=== PATIENT | male | born 1990 | race American Indian/Alaskan Native ===

== ENCOUNTER 2016-12-21 02:10 | Emergency (ER) | payer BC, OTHER ==
[2016-12-21 02:20] VITALS: TEMP 98.3; O2SAT 99; BMI 25.8
--- NOTE | 2016-12-21 02:33 | ED PDOC ---
Arrival/HPI - General Time Seen by Provider: 12/21/16 02:23 - History of Present Illness Narrative History of Present Illness (Text): 12/21/16 02:30 Gilbert Gomez is a 26 year old male, whose past medical history includes H. pylori gastritis, who presents to the Emergency department complaining of nausea and vomiting since eating chicken yesterday evening. Patient also notes some abdominal discomfort. Patient denies any fever, chills, chest pain, shortness of breath, diarrhea, urinary symptoms, back pain, neck pain, headache , dizziness, or any other complaints. Time/Duration: 4-6 hours Symptom Onset: Gradual Symptom Course: Unchanged Activities at Onset: Light, Eating Context: Home Past Medical History - Provider Review Nursing Documentation Reviewed: Yes - Cardiac Hx Cardiac Disorders: No - Pulmonary Hx Respiratory Disorders: No - Neurological Hx Neurological Disorder: No - HEENT Hx HEENT Disorder: No - Renal Hx Renal Disorder: No - Endocrine/Metabolic Hx Endocrine Disorders: No - Hematological/Oncological Hx Blood Disorders: No - Integumentary Hx Dermatological Disorder: No - Musculoskeletal/Rheumatological Hx Musculoskeletal Disorders: No Hx Falls: No - Gastrointestinal Hx Gastrointestinal Disorders: Yes Other/Comment: h pylori - Genitourinary/Gynecological Hx Genitourinary Disorders: No - Psychiatric Hx Psychophysiologic Disorder: No Hx Substance Use: No - Anesthesia Hx Anesthesia: No Family/Social History - Physician Review Nursing Documentation Reviewed: Yes Family/Social History: No Known Family HX Smoking Status: Never Smoked Hx Alcohol Use: No Hx Substance Use: No Allergies/Home Meds Allergies/Adverse Reactions: Allergies No Known Allergies Allergy (Verified 01/15/16 21:04) Home Medications: Home Meds Medication Instructions Recorded Confirmed Lansoprazole/Amoxiciln/Clarith 01/15/16 [Prevpac Patient Pack] Review of Systems - Physician Review All systems were reviewed & negative as marked: Yes - Review of Systems Constitutional: Normal. absent: Fevers Eyes: Normal ENT: Normal Respiratory: Normal. absent: SOB, Cough Cardiovascular: Normal. absent: Chest Pain Gastrointestinal: Abdominal Pain, Nausea, Vomiting. absent: Diarrhea Genitourinary Male: Normal. absent: Dysuria, Frequency, Hematuria, Urinary Output Changes Musculoskeletal: Normal. absent: Back Pain, Neck Pain Skin: Normal. absent: Rash Neurological: Normal. absent: Headache, Dizziness Endocrine: Normal Hemo/Lymphatic: Normal Psychiatric: Normal Physical Exam Vital Signs Reviewed: Yes Vital Signs Temp Pulse Resp BP Pulse Ox 12/21/16 04:10 98 H 16 114/64 99 12/21/16 02:18 98.3 F 78 18 109/75 99 Temperature: Afebrile Blood Pressure: Normal Pulse: Regular Respiratory Rate: Normal Appearance: Positive for: Well-Appearing, Non-Toxic, Comfortable Pain Distress: None Mental Status: Positive for: Alert and Oriented X 3 - Systems Exam Head: Present: Atraumatic, Normocephalic Pupils: Present: PERRL Extroacular Muscles: Present: EOMI Conjunctiva: Present: Normal Mouth: Present: Moist Mucous Membranes Neck: Present: Normal Range of Motion Respiratory/Chest: Present: Clear to Auscultation, Good Air Exchange. No: Respiratory Distress, Accessory Muscle Use Cardiovascular: Present: Regular Rate and Rhythm, Normal S1, S2. No: Murmurs Abdomen: Present: Normal Bowel Sounds. No: Tenderness, Distention, Peritoneal Signs Back: Present: Normal Inspection Upper Extremity: Present: Normal Inspection. No: Cyanosis, Edema Lower Extremity: Present: Normal Inspection. No: Edema Neurological: Present: GCS=15, CN II-XII Intact, Speech Normal Skin: Present: Warm, Dry, Normal Color. No: Rashes Psychiatric: Present: Alert, Oriented x 3, Normal Insight, Normal Concentration Medical Decision Making ED Course and Treatment: 12/21/16 02:30 Impression: 26 year old male complaining of nausea, vomiting, abdominal discomfort after eating at 18:00. Differential Diagnosis include but are not limited to: gastritis Plan: -- Labs, lipase -- IV fluids -- Zofran -- Pepcid -- Reassess and disposition Progress Notes: - Lab Interpretations Lab Results: 12/21/16 02:35 12/21/16 02:35 Lab Results 12/21/16 02:35: WBC 7.1, RBC 5.91, Hgb 13.4 L, Hct 40.7 L, MCV 68.9 L, MCH 22.7 L, MCHC 32.9, RDW 18.1 H, Plt Count 326, MPV 9.7 12/21/16 02:35: Sodium 140, Potassium 3.8, Chloride 103, Carbon Dioxide 28, Anion Gap 13, BUN 8, Creatinine 1.0, Est GFR ( Amer) > 60, Est GFR (Non- Af Amer) > 60, Random Glucose 134 H, Calcium 9.1, Total Bilirubin 0.5, AST 30, ALT 38, Alkaline Phosphatase 86, Total Protein 7.6, Albumin 3.9, Globulin 3.6, Albumin/Globulin Ratio 1.1, Lipase 115 - Medication Orders Current Medication Orders: Discontinued Medications Famotidine (Pepcid) 20 mg IVP STAT STA Stop: 12/21/16 02:36 Last Admin: 12/21/16 03:02 Dose: 20 mg Sodium Chloride (Sodium Chloride 0.9%) 1,000 mls @ 999 mls/hr IV .Q1H1M STA Stop: 12/21/16 03:34 Last Admin: 12/21/16 02:49 Dose: 999 mls/hr Ondansetron HCl (Zofran Inj) 4 mg IVP ONCE ONE Stop: 12/21/16 02:35 Last Admin: 12/21/16 02:50 Dose: 4 mg - Scribe Statement The provider has reviewed the documentation as recorded by the Marty Kim Provider Attestation: All medical record entries made by the Marty were at my direction and personally dictated by me. I have reviewed the chart and agree that the record accurately reflects my personal performance of the history, physical exam, medical decision making, and the department course for this patient. I have also personally directed, reviewed, and agree with the discharge instructions and disposition. Disposition/Present on Arrival - Present on Arrival Any Indicators Present on Arrival: No History of DVT/PE: No History of Uncontrolled Diabetes: No Urinary Catheter: No History Surgical Site Infection Following: None - Disposition Have Diagnosis and Disposition been Completed?: Yes Diagnosis: Gastritis Disposition: HOME/ ROUTINE Disposition Time: 05:00 Patient Plan: Discharge Condition: STABLE Discharge Instructions (ExitCare): Gastritis (ED) Additional Instructions: Take meds as prescribed/follow up with your doctor this week Prescriptions: Ondansetron [Zofran Odt] 4 mg PO Q6 PRN #6 odt PRN Reason: Nausea/Vomiting
[2016-12-21] MEDS ORDERED: Sodium Chloride 0.9% 1,000 ML IV STA (02:34)
[2016-12-21 02:54] LABS: HEMATOCRIT 40.7 % (42.0-52.0); MEAN CORPUSCULAR HEMOGLOBIN 22.7 pg (25.0-35.0); MEAN CORPUSCULAR HGB CONC 32.9 g/dl (31.0-37.0); MEAN PLATELET VOLUME 9.7 fl (7.0-11.0); RED CELL DISTRIBUTION WIDTH 18.1 % (11.5-14.5); WHITE BLOOD COUNT 7.1 10^3/ul (4.5-11.0)
[2016-12-21 02:59] LABS: ALB/GLOB RATIO 1.1 (1.1-1.8); ALKALINE PHOSPHATASE 86 U/L (38-133); ALT/SGPT 38 U/L (7-56); AST/SGOT 30 U/L (15-59); BILIRUBIN,TOTAL 0.5 mg/dL (0.2-1.3); BLOOD UREA NITROGEN 8 mg/dL (7-21); CALCIUM 9.1 mg/dL (8.4-10.5); CARBON DIOXIDE 28 mmol/L (21-33); CHLORIDE 103 mmol/L (95-110); GFR AFRICAN-AMERICAN > 60; GLUCOSE,RANDOM 134 mg/dL (70-110); LIPASE 115 U/L (23-300); POTASSIUM 3.8 mmol/L (3.6-5.0); SODIUM 140 mmol/L (132-148); TOTAL PROTEIN 7.6 g/dL (5.8-8.3)
[2016-12-21 04:17] VITALS: BP 114/64; PULSE 98; RESP 16
[2016-12-21 05:03] LABS: MEAN CELL VOLUME 68.9 fL (80.0-105.0)
== END 2016-12-21 05:13 | disposition home or self-care (01) ==
LOC: ED 02:10
DX: K29.70 Gastritis, unspecified, without bleeding (principal)
CPT/HCPCS: 80053; 83690; 85027; 96374; 96375; 99283; J2405; J7040

== ENCOUNTER 2018-02-21 07:42 | Emergency (ER) | payer BC, MEDICARE, OTHER ==
[2018-02-21 07:43] VITALS: BMI 25.8
--- NOTE | 2018-02-21 07:51 | ED PDOC ---
Arrival/HPI - General Chief Complaint: GI Problem Time Seen by Provider: 02/21/18 07:47 Historian: Patient - History of Present Illness Narrative History of Present Illness (Text): 02/21/18 08:10 27 year old male, whose PMH includes H pylori, who presents to the emergency department complaining of generalized abdominal pain associated with vomiting x4 episodes s/p eating. Patient reports having similar symptoms in the past 2 years ago and went to the emergency department for H pylori antibiotics. Patient denies fever, chills, blood in stool, dysuria, hematuria, or other complaints. He rates his pain 10 out 10. Time/Duration: < week Symptom Onset: Sudden Symptom Course: Unchanged Severity Level: 10 Context: Home Past Medical History - Provider Review Nursing Documentation Reviewed: Yes - Infectious Disease Hx of Infectious Diseases: None - Cardiac Hx Cardiac Disorders: No - Pulmonary Hx Respiratory Disorders: No - Neurological Hx Neurological Disorder: No - HEENT Hx HEENT Disorder: No - Renal Hx Renal Disorder: No - Endocrine/Metabolic Hx Endocrine Disorders: No - Hematological/Oncological Hx Blood Disorders: No - Integumentary Hx Dermatological Disorder: No - Musculoskeletal/Rheumatological Hx Musculoskeletal Disorders: No Hx Falls: No - Gastrointestinal Hx Gastrointestinal Disorders: Yes Other/Comment: h pylori - Genitourinary/Gynecological Hx Genitourinary Disorders: No - Psychiatric Hx Psychophysiologic Disorder: No Hx Substance Use: No - Anesthesia Hx Anesthesia: No Family/Social History - Physician Review Nursing Documentation Reviewed: Yes Family/Social History: Unknown Family HX Smoking Status: Never Smoked Hx Alcohol Use: No Hx Substance Use: No Allergies/Home Meds Allergies/Adverse Reactions: Allergies No Known Allergies Allergy (Verified 02/21/18 07:49) Review of Systems - Review of Systems Constitutional: absent: Fevers ENT: absent: Sinus Congestion Respiratory: absent: SOB Cardiovascular: absent: Chest Pain Gastrointestinal: Abdominal Pain, Nausea, Vomiting. absent: Hematochezia, Hematemesis Genitourinary Male: absent: Dysuria Musculoskeletal: absent: Back Pain Skin: absent: Rash Neurological: absent: Headache Endocrine: absent: Diaphoresis Physical Exam Vital Signs Reviewed: Yes Vital Signs Temp Pulse Resp BP Pulse Ox 02/21/18 09:18 98.6 F 79 18 128/79 99 02/21/18 07:47 98.3 F 74 18 137/80 99 Temperature: Afebrile Blood Pressure: Normal Pulse: Regular Respiratory Rate: Normal Appearance: Positive for: Well-Appearing, Non-Toxic, Comfortable Pain Distress: None Mental Status: Positive for: Alert and Oriented X 3 - Systems Exam Head: Present: Atraumatic, Normocephalic Pupils: Present: PERRL Extroacular Muscles: Present: EOMI Conjunctiva: Present: Normal Respiratory/Chest: Present: Clear to Auscultation, Good Air Exchange. No: Respiratory Distress, Accessory Muscle Use, Wheezes, Decreased Breath Sounds, Rales, Retracting, Rhonchi Cardiovascular: Present: Regular Rate and Rhythm, Normal S1, S2. No: Murmurs Abdomen: Present: Normal Bowel Sounds, Other (pain on deep palpation ). No: Tenderness, Distention, Peritoneal Signs, Rebound, Guarding, McBurney's Point Tender Neurological: Present: GCS=15, CN II-XII Intact, Speech Normal Skin: Present: Warm, Dry, Normal Color. No: Rashes Psychiatric: Present: Alert, Oriented x 3, Normal Insight, Normal Concentration Medical Decision Making ED Course and Treatment: 02/21/18 Impression: 27 year old male with pain on palpation to the abdomen complaining of abdominal pain associated with vomiting. Plan: -- Labs -- Pepcid, Zofran, Maalox, and Sodium Chloride -- Reassess and disposition Progress Notes: - Lab Interpretations Lab Results: 02/21/18 07:00 02/21/18 07:00 Lab Results 02/21/18 07:00: Sodium 142, Potassium 3.5 L, Chloride 103, Carbon Dioxide 27, Anion Gap 16, BUN 10, Creatinine 1.0, Est GFR ( Amer) > 60, Est GFR (Non- Af Amer) > 60, Random Glucose 113 H, Calcium 9.4, Magnesium 1.8, Total Bilirubin 0.7, AST 41, ALT 28, Alkaline Phosphatase 125, Total Protein 8.1, Albumin 4.5, Globulin 3.6, Albumin/Globulin Ratio 1.3, Lipase 102 02/21/18 07:00: WBC 8.6 D, RBC 6.02, Hgb 13.2 L, Hct 40.1 L, MCV 66.6 L, MCH 21.9 L, MCHC 32.9, RDW 18.5 H, Plt Count 313, MPV 10.0, Gran % 46.8 L, Lymph % ( Auto) 38.1 H, [place] % (Auto) 8.4 H, Eos % (Auto) 6.0 H, Baso % (Auto) 0.7, Gran # 4.04, Lymph # (Auto) 3.3, [place] # (Auto) 0.7 H, Eos # (Auto) 0.5, Baso # (Auto ) 0.06 I have reviewed the lab results: Yes - Medication Orders Current Medication Orders: Discontinued Medications Al Hydrox/Mg Hydrox/Simethicone (Maalox Plus 30 Ml) 30 ml PO STAT STA Stop: 02/21/18 08:14 Last Admin: 02/21/18 09:12 Dose: Not Given Non-Admin Reason: Patient Refused Famotidine (Pepcid) 20 mg IVP STAT STA Stop: 02/21/18 08:13 Last Admin: 02/21/18 08:24 Dose: 20 mg IVP Administration Document 02/21/18 08:24 EWO (Rec: 02/21/18 08:24 EWO [id number]) Charges for Administration # of IVP Administrations 1 Sodium Chloride (Sodium Chloride 0.9%) 1,000 mls @ 1,000 mls/hr IV .Q1H STA Stop: 02/21/18 09:11 Last Admin: 02/21/18 08:25 Dose: 1,000 mls/hr eMAR Start Stop Document 02/21/18 08:25 EWO (Rec: 02/21/18 08:25 EWO [id number]) Intravenous Solution Start Date 02/21/18 Start Time 08:25 End Date 02/21/18 End time 09:25 Total Infusion Time 60 Ondansetron HCl (Zofran Inj) 4 mg IVP STAT STA Stop: 02/21/18 08:13 Last Admin: 02/21/18 08:24 Dose: 4 mg IVP Administration Document 02/21/18 08:24 EWO (Rec: 02/21/18 08:24 EWO [id number]) Charges for Administration # of IVP Administrations 1 - Scribe Statement The provider has reviewed the documentation as recorded by the Marty Goins Provider Scribe Attestation: All medical record entries made by the Scribe were at my direction and personally dictated by me. I have reviewed the chart and agree that the record accurately reflects my personal performance of the history, physical exam, medical decision making, and the department course for this patient. I have also personally directed, reviewed, and agree with the discharge instructions and disposition. Disposition/Present on Arrival - Present on Arrival Any Indicators Present on Arrival: No History of DVT/PE: No History of Uncontrolled Diabetes: No Urinary Catheter: No History of Decub. Ulcer: No History Surgical Site Infection Following: None - Disposition Have Diagnosis and Disposition been Completed?: Yes Diagnosis: Gastritis Disposition: HOME/ ROUTINE Disposition Time: 08:40 Condition: IMPROVED Discharge Instructions (ExitCare): Gastritis (DC) Additional Instructions: KAVYA ALVAREZ, thank you for letting us take care of you today. The emergency medical care you received today was directed at your acute symptoms. If you were prescribed any medication, please fill it and take as directed. It may take several days for your symptoms to resolve. Return to the Emergency Department if your symptoms worsen, do not improve, or if you have any other problems. Please contact your doctor or call one of the physicians/clinics you have been referred to that are listed on the Patient Visit Information form that is included in your discharge packet. Bring any paperwork you were given at discharge with you along with any medications you are taking to your follow up visit. Our treatment cannot replace ongoing medical care by a primary care provider outside of the emergency department. Thank you for allowing the [facility] team to be part of your care today. Follow up with your primary care doctor in 3-4 days for re-evaluation and further management. Prescriptions: Lansoprazole/Amoxiciln/Clarith [Prevpac Patient Pack] 1 each PO DAILY #1 combo..pkg Ranitidine HCl [Zantac] 150 mg PO BID #14 tablet Referrals: Mayra Marinelli MD [Family Provider] - Follow up with primary Forms: [employer] (Latvian)
[2018-02-21 07:58] VITALS: RESP 18; O2SAT 99
[2018-02-21] MEDS ORDERED: Sodium Chloride 0.9% 1,000 ML IV STA (08:12)
[2018-02-21] MEDS ORDERED: Alum-Mag Hydrox-Simethicone Susp (30 mL) PO STA (08:13)
[2018-02-21 08:21] LABS: BASO # 0.06 K/mm3 (0.0-2.0); BASO % 0.7 % (0.0-3.0); EOS # 0.5 (0.0-0.7); GRAN # 4.04 (1.4-6.5); GRAN % 46.8 % (50.0-68.0); HEMOGLOBIN 13.2 g/dL (14.0-18.0); LYMPH # 3.3 (1.2-3.4); LYMPH % 38.1 % (22.0-35.0); MEAN CELL VOLUME 66.6 fl (80.0-105.0); MEAN CORPUSCULAR HEMOGLOBIN 21.9 pg (25.0-35.0); MEAN CORPUSCULAR HGB CONC 32.9 g/dl (31.0-37.0); MONO # 0.7 (0.1-0.6); MONO % 8.4 % (1.0-6.0); RBC 6.02 10^6/uL (3.5-6.1); RED CELL DISTRIBUTION WIDTH 18.5 % (11.5-14.5); WHITE BLOOD COUNT 8.6 10^3/ul (4.5-11.0)
[2018-02-21 08:38] LABS: ALB/GLOB RATIO 1.3 (1.1-1.8); ALBUMIN 4.5 g/dL (3.0-4.8); ALT/SGPT 28 U/L (7-56); AST/SGOT 41 U/L (17-59); BLOOD UREA NITROGEN 10 mg/dL (7-21); CALCIUM 9.4 mg/dL (8.4-10.5); GFR AFRICAN-AMERICAN > 60; GFR NON-AFRICAN AMERICAN > 60; LIPASE 102 U/L (23-300)
[2018-02-21 09:19] VITALS: BP 128/79; PULSE 79; TEMP 98.6
== END 2018-02-21 09:18 | disposition home or self-care (01) ==
LOC: ED 07:42
DX: K29.70 Gastritis, unspecified, without bleeding (principal)
CPT/HCPCS: 80053; 83690; 83735; 85025; 96361; 96374; 96375; 99282; J2405; J7030

== ENCOUNTER 2018-02-23 18:47 | Emergency (ER) | payer BC, MEDICARE, OTHER ==
[2018-02-23 18:47] VITALS: BMI 25.8
[2018-02-23] MEDS ORDERED: Sodium Chloride 0.9% 1,000 ML IV STA (19:24)
[2018-02-23 20:05] LABS: ALB/GLOB RATIO 1.2 (1.1-1.8); ALBUMIN 4.5 g/dL (3.0-4.8); ALT/SGPT 36 U/L (7-56); AST/SGOT 41 U/L (17-59); BASO # 0.05 K/mm3 (0.0-2.0); BASO % 0.6 % (0.0-3.0); BLOOD UREA NITROGEN 12 mg/dL (7-21); CALCIUM 9.7 mg/dL (8.4-10.5); EOS # 0.1 (0.0-0.7); EOS % 1.5 % (1.5-5.0); GFR AFRICAN-AMERICAN > 60; GFR NON-AFRICAN AMERICAN > 60; GRAN # 6.16 (1.4-6.5); GRAN % 70.2 % (50.0-68.0); HEMOGLOBIN 13.7 g/dL (14.0-18.0); LIPASE 61 U/L (23-300); LYMPH # 1.8 (1.2-3.4); LYMPH % 20.9 % (22.0-35.0); MEAN CELL VOLUME 67.1 fl (80.0-105.0); MEAN CORPUSCULAR HEMOGLOBIN 22.2 pg (25.0-35.0); MEAN CORPUSCULAR HGB CONC 33.1 g/dl (31.0-37.0); MEAN PLATELET VOLUME 10.1 fl (7.0-11.0); MONO # 0.6 (0.1-0.6); MONO % 6.8 % (1.0-6.0); RBC 6.17 10^6/uL (3.5-6.1); RED CELL DISTRIBUTION WIDTH 18.5 % (11.5-14.5); WHITE BLOOD COUNT 8.8 10^3/ul (4.5-11.0)
--- NOTE | 2018-02-23 20:16 | ED PDOC ---
Arrival/HPI - General Historian: Patient - History of Present Illness Time/Duration: < week Symptom Onset: Gradual Activities at Onset: Rest Context: Home <Sharonda Durán - Last Filed: 02/23/18 22:04> <Sarath Ye DO - Last Filed: 02/24/18 05:45> - General Chief Complaint: Weakness/Neurological Deficit Time Seen by Provider: 02/23/18 18:55 - History of Present Illness Narrative History of Present Illness (Text): 02/23/18 20:10 This is a 27 year old male with PMH of H. Pylori presenting to the ER today after 2 days of abdominal pain, diarrhea, vomiting, and dizziness. Patient states he vomited 8 times yesterday, mostly food. He was seen in the ER earlier this week for abdominal pain, and was given Prevpak for likely exacerbation of H. Pylori. However, patient was unable to fill the medication due to cost. Patient denies headaches, chest pain, SOB, fevers, numbness and tingling, sick contacts at home and recent travel. (Sharonda Durán) Past Medical History - Provider Review Nursing Documentation Reviewed: Yes - Infectious Disease Hx of Infectious Diseases: None - Cardiac Hx Cardiac Disorders: No - Pulmonary Hx Respiratory Disorders: No - Neurological Hx Neurological Disorder: No - HEENT Hx HEENT Disorder: No - Renal Hx Renal Disorder: No - Endocrine/Metabolic Hx Endocrine Disorders: No - Hematological/Oncological Hx Blood Disorders: No - Integumentary Hx Dermatological Disorder: No - Musculoskeletal/Rheumatological Hx Musculoskeletal Disorders: No Hx Falls: No - Gastrointestinal Hx Gastrointestinal Disorders: Yes Other/Comment: h pylori - Genitourinary/Gynecological Hx Genitourinary Disorders: No - Psychiatric Hx Psychophysiologic Disorder: No Hx Substance Use: No - Anesthesia Hx Anesthesia: No <Sharonda Durán - Last Filed: 02/23/18 22:04> Family/Social History - Physician Review Nursing Documentation Reviewed: Yes Family/Social History: Unknown Family HX Smoking Status: Never Smoked Hx Alcohol Use: No Hx Substance Use: No <Sharonda Durán - Last Filed: 02/23/18 22:04> Allergies/Home Meds <Sharonda Durán - Last Filed: 02/23/18 22:04> <Sarath Ye DO - Last Filed: 02/24/18 05:45> Allergies/Adverse Reactions: Allergies No Known Allergies Allergy (Verified 02/23/18 18:52) Home Medications: Home Meds Medication Instructions Recorded Confirmed No Known Home Med 02/23/18 02/23/18 Review of Systems - Physician Review All systems were reviewed & negative as marked: Yes - Review of Systems Constitutional: Normal. absent: Weight Change, Fevers Respiratory: Normal. absent: SOB, Cough Cardiovascular: Normal. absent: Chest Pain, Palpitations Gastrointestinal: Abdominal Pain, Diarrhea, Vomiting. absent: Stool Changes, Hematochezia, Hematemesis Musculoskeletal: Normal Skin: Normal Neurological: Normal, Dizziness. absent: Headache Endocrine: Normal Psychiatric: Normal <Sharonda Durán Last Filed: 02/23/18 22:04> Physical Exam Vital Signs Reviewed: Yes Temperature: Afebrile Blood Pressure: Normal Pulse: Tachycardic Respiratory Rate: Normal Appearance: Positive for: Well-Appearing, Non-Toxic, Comfortable Pain Distress: None Mental Status: Positive for: Alert and Oriented X 3 - Systems Exam Head: Present: Atraumatic, Normocephalic Pupils: Present: PERRL Extroacular Muscles: Present: EOMI Conjunctiva: Present: Normal Mouth: Present: Moist Mucous Membranes Neck: Present: Normal Range of Motion Respiratory/Chest: Present: Clear to Auscultation, Good Air Exchange. No: Respiratory Distress, Accessory Muscle Use Cardiovascular: Present: Regular Rate and Rhythm, Normal S1, S2. No: Murmurs Abdomen: Present: Normal Bowel Sounds. No: Tenderness, Distention, Peritoneal Signs, Rebound, Guarding, McBurney's Point Tender Back: Present: Normal Inspection Upper Extremity: Present: Normal Inspection. No: Cyanosis, Edema Lower Extremity: Present: Normal Inspection. No: Edema Neurological: Present: CN II-XII Intact, Speech Normal, Motor Func Grossly Intact, Normal Sensory Function Skin: Present: Warm, Dry, Normal Color. No: Rashes Psychiatric: Present: Alert, Normal Insight, Normal Concentration <Sharonda Durán Last Filed: 02/23/18 22:04> Vital Signs Temp Pulse Resp BP Pulse Ox 02/23/18 22:07 98.7 F 89 18 113/66 100 02/23/18 22:04 98.7 F 89 18 113/66 100 02/23/18 18:53 99.1 F 120 H 17 105/67 99 Medical Decision Making <Sharonda Durán - Last Filed: 02/23/18 22:04> <Cassi DOSarath - Last Filed: 02/24/18 05:45> ED Course and Treatment: Impression: This is a 27 year old male with PMH of H. Pylori presenting with dizziness, vomiting, abdominal pain and diarrhea. Plan: -CT abd/pelvis -Drug Screen -U/A, culture -Pepcid -Zofran -CBC, CMP -Lipase, Mg Progress: (LeeannaSharonda) - Lab Interpretations Lab Results: 02/23/18 19:43 02/23/18 19:43 Lab Results 02/23/18 21:10: Urine Opiates Screen Negative, Urine Methadone Screen Negative, Ur Barbiturates Screen Negative, Ur Phencyclidine Scrn Negative, Ur Amphetamines Screen Negative, U Benzodiazepines Scrn Negative, U Oth Cocaine Metabols Negative, U Cannabinoids Screen Negative 02/23/18 21:10: Urine Color Yellow, Urine Appearance Clear, Urine pH 7.5, Ur Specific [place] 1.010, Urine Protein 100 H, Urine Glucose (UA) Negative, Urine Ketones 15 H, Urine Blood Negative, Urine Nitrate Negative, Urine Bilirubin Negative, Urine Urobilinogen 1.0 H, Ur Leukocyte Esterase Negative, Urine RBC 0 - 2, Urine WBC 1 - 3, Ur Epithelial Cells None, Amorphous Sediment Few, Urine Bacteria Mod 02/23/18 19:43: Sodium 143, Potassium 3.9, Chloride 101, Carbon Dioxide 28, Anion Gap 17, BUN 12, Creatinine 1.1, Est GFR ( Amer) > 60, Est GFR (Non- Af Amer) > 60, Random Glucose 88, Calcium 9.7, Magnesium 2.0, Total Bilirubin 1.3, AST 41, ALT 36, Alkaline Phosphatase 134 H, Total Protein 8.4 H, Albumin 4.5, Globulin 3.9, Albumin/Globulin Ratio 1.2, Lipase 61 02/23/18 19:43: WBC 8.8, RBC 6.17 H, Hgb 13.7 L, Hct 41.4 L, MCV 67.1 L, MCH 22.2 L, MCHC 33.1, RDW 18.5 H, Plt Count 316, MPV 10.1, Gran % 70.2 H, Lymph % ( Auto) 20.9 L, [place] % (Auto) 6.8 H, Eos % (Auto) 1.5, Baso % (Auto) 0.6, Gran # 6.16, Lymph # (Auto) 1.8, [place] # (Auto) 0.6, Eos # (Auto) 0.1, Baso # (Auto) 0.05 - RAD Interpretation Radiology Orders: 02/23/18 19:24 ABD & PELVIS IV CONTRAST ONLY [CT] Stat - Medication Orders Current Medication Orders: Discontinued Medications Famotidine (Pepcid) 20 mg IVP STAT STA Stop: 02/23/18 19:25 Last Admin: 02/23/18 19:52 Dose: 20 mg IVP Administration Document 02/23/18 19:52 IT (Rec: 02/23/18 19:52 IT [id number]) Charges for Administration # of IVP Administrations 1 Sodium Chloride (Sodium Chloride 0.9%) 1,000 mls @ 1,000 mls/hr IV .Q1H STA Stop: 02/23/18 20:23 Last Admin: 02/23/18 19:52 Dose: 1,000 mls/hr eMAR Start Stop Document 02/23/18 19:52 IT (Rec: 02/23/18 19:52 IT [id number]) Intravenous Solution Start Date 02/23/18 Start Time 19:52 Ondansetron HCl (Zofran Inj) 8 mg IVP STAT STA Stop: 02/23/18 20:08 Last Admin: 02/23/18 21:12 Dose: 8 mg IVP Administration Document 02/23/18 21:12 IT (Rec: 02/23/18 21:12 IT [id number]) Charges for Administration # of IVP Administrations 1 - PA / SEISMOGRAPHER / Resident Statement / has reviewed & agrees with the documentation as recorded. / has examined the patient and agrees with the treatment plan. <Sharonda Durán - Last Filed: 02/23/18 22:04> Disposition/Present on Arrival - Present on Arrival Any Indicators Present on Arrival: No History of DVT/PE: No History of Uncontrolled Diabetes: No Urinary Catheter: No History of Decub. Ulcer: No History Surgical Site Infection Following: None - Disposition Have Diagnosis and Disposition been Completed?: Yes Disposition Time: 22:00 <Sharonda Durán - Last Filed: 02/23/18 22:04> - Disposition Disposition Time: 21:00 <Sarath Ye DO - Last Filed: 02/24/18 05:45> - Disposition Diagnosis: Gastritis Disposition: HOME/ ROUTINE Condition: GOOD Discharge Instructions (ExitCare): Gastritis (DC) Additional Instructions: KAVYA ALVAREZ, thank you for letting us take care of you today. The emergency medical care you received today was directed at your acute symptoms. If you were prescribed any medication, please fill it and take as directed. It may take several days for your symptoms to resolve. Return to the Emergency Department if your symptoms worsen, do not improve, or if you have any other problems. Please contact your doctor or call one of the physicians/clinics you have been referred to that are listed on the Patient Visit Information form that is included in your discharge packet. Bring any paperwork you were given at discharge with you along with any medications you are taking to your follow up visit. Our treatment cannot replace ongoing medical care by a primary care provider outside of the emergency department. Thank you for allowing the [facility] team to be part of your care today. Please fill the prescriptions that you received 2 days ago and take as directed. Follow up with Dr. Marinelli in 2-3 days for re-evaluation and further management. Referrals: Mayra Marinelli MD [Primary Care Provider] - Follow up with primary Forms: [employer] ([place]ander)
[2018-02-23] MEDS ORDERED: Iohexol 350 MG/100 ML VIAL ONE (20:21)
[2018-02-23 21:42] LABS: BARBITURATES, UR NEGATIVE (NEGATIVE); BENZODIAZEPINES, UR NEGATIVE (NEGATIVE); OPIATES, UR NEGATIVE (NEGATIVE); PH,URINE 7.5 (4.7-8.0); PHENCYCLIDINE, UR NEGATIVE (NEGATIVE); URINE BILIRUBIN NEGATIVE (NEGATIVE); URINE BLOOD NEGATIVE (NEGATIVE); URINE GLUCOSE (UA) NEGATIVE (NEGATIVE); URINE LEUKOCYTE ESTERASE NEGATIVE Leu/uL (NEGATIVE); URINE PROTEIN 100 mg/dL (<30 mg/dL)
[2018-02-23 21:46] LABS: URINE APPEARANCE CLEAR (CLEAR); URINE COLOR YELLOW (YELLOW)
[2018-02-23 21:50] LABS: URINE AMORPHOUS SEDIMENT FEW; URINE BACTERIA MOD (NEG); URINE RBC 0 - 2 /hpf (0-2)
[2018-02-23 22:05] VITALS: BP 113/66; PULSE 89; RESP 18; TEMP 98.7; O2SAT 100
--- NOTE | 2018-02-24 08:18 | CT ---
PROCEDURE: CT Abdomen and Pelvis with contrast HISTORY: diffuse abdominal pain with vomiting and diarrhea. COMPARISON: 01/17/2016 TECHNIQUE: Contrast dose: 100 cc Omnipaque 350 Radiation dose: Total exam DLP = 724.74 mGy-cm. This CT exam was performed using one or more of the following dose reduction techniques: Automated exposure control, adjustment of the mA and/or kV according to patient size, and/or use of iterative reconstruction technique. FINDINGS: LOWER THORAX: Unremarkable. LIVER: Unremarkable. No gross lesion or ductal dilatation. GALLBLADDER AND BILE DUCTS: Unremarkable. PANCREAS: Unremarkable. No gross lesion or ductal dilatation. SPLEEN: Unremarkable. ADRENALS: Unremarkable. No mass. KIDNEYS AND URETERS: Unremarkable. No hydronephrosis. No solid mass. VASCULATURE: Unremarkable. No aortic aneurysm. BOWEL: Mildly dilated colon and small bowel the overall appearance similar to that seen on the prior CT scan. APPENDIX: No abnormalities to suggest acute appendicitis. No right lower quadrant inflammatory processes identified. PERITONEUM: Unremarkable. No free fluid. No free air. LYMPH NODES: Unremarkable. No enlarged lymph nodes. BLADDER: Unremarkable. REPRODUCTIVE: Unremarkable. BONES: No acute fracture. OTHER FINDINGS: None. IMPRESSION: No acute findings related to/accounting for the clinical presentation. Additional benign and/or incidental findings described above. No significant interval change compared to the prior examination(s). Concordant results (preliminary interpretation) provided by [facility]. Procedure Completed: 20:39 Preliminary ([facility]) Report: Dictated and Authenticated: 20:55 Final Interpretation: 08:15 February 24, 2018.
== END 2018-02-23 22:08 | disposition home or self-care (01) ==
LOC: ED 18:47
DX: K29.70 Gastritis, unspecified, without bleeding (principal)
CPT/HCPCS: 74177; 80053; 81001; 83690; 83735; 85025; 87086; 96374; 96375; 99285; G0480; J2405; J7030; Q9967

== ENCOUNTER 2018-03-26 13:03 | Emergency (ER) | payer MEDICARE, OTHER ==
[2018-03-26 13:29] VITALS: RESP 18; TEMP 97.6; BMI 26.6
--- NOTE | 2018-03-26 14:19 | ED PDOC ---
Arrival/HPI - General Chief Complaint: Abdominal Pain Time Seen by Provider: 03/26/18 13:21 Historian: Patient - History of Present Illness Narrative History of Present Illness (Text): 03/26/18 14:15 28 year old male, with past medical history of H. Pylori, presents to the Emergency department complaining of nausea and multiple episodes of vomiting since this morning. Patient states he was prescribed Zantac for abdominal pain and has been taking medication without any complication. However, patient states he has had 2-3 episodes of vomiting today secondary to taking zantac. Patient states similar symptoms in the past which were not associated with taking zantac. Patient denies any fever, chills, diarrhea, hematemesis, chest pain, shortness of breath or any other complaints. Patient presents to the Emergency department for medical evaluation. PMD: Dr. Marinelli Time/Duration: 4-6 hours Symptom Onset: Gradual Symptom Course: Unchanged Quality: Aching Activities at Onset: Light Context: Home Past Medical History - Provider Review Nursing Documentation Reviewed: Yes - Infectious Disease Hx of Infectious Diseases: None - Cardiac Hx Cardiac Disorders: No - Pulmonary Hx Respiratory Disorders: No - Neurological Hx Neurological Disorder: No - HEENT Hx HEENT Disorder: No - Renal Hx Renal Disorder: No - Endocrine/Metabolic Hx Endocrine Disorders: No - Hematological/Oncological Hx Blood Disorders: No - Integumentary Hx Dermatological Disorder: No - Musculoskeletal/Rheumatological Hx Musculoskeletal Disorders: No - Gastrointestinal Hx Gastrointestinal Disorders: Yes Other/Comment: h pylori - Genitourinary/Gynecological Hx Genitourinary Disorders: No - Psychiatric Hx Psychophysiologic Disorder: No Hx Substance Use: No - Anesthesia Hx Anesthesia: No Family/Social History - Physician Review Nursing Documentation Reviewed: Yes Family/Social History: No Known Family HX Smoking Status: Never Smoked Hx Alcohol Use: No Hx Substance Use: No Allergies/Home Meds Allergies/Adverse Reactions: Allergies No Known Allergies Allergy (Verified 03/26/18 13:28) Home Medications: Home Meds Medication Instructions Recorded Confirmed Ranitidine HCl [Zantac] 150 mg PO DAILY 03/26/18 03/26/18 Review of Systems - Physician Review All systems were reviewed & negative as marked: Yes - Review of Systems Constitutional: Normal. absent: Fevers Eyes: Normal ENT: Normal Respiratory: Normal. absent: SOB Cardiovascular: Normal. absent: Chest Pain Gastrointestinal: Abdominal Pain, Nausea, Vomiting. absent: Diarrhea, Hematemesis Genitourinary Male: Normal Musculoskeletal: Normal Skin: Normal Neurological: Normal Endocrine: Normal Hemo/Lymphatic: Normal Psychiatric: Normal Physical Exam Vital Signs Reviewed: Yes Vital Signs Temp Pulse Resp BP Pulse Ox 03/26/18 15:42 97.6 F 75 18 120/72 100 03/26/18 13:26 97.6 F 79 18 126/71 98 Temperature: Afebrile Blood Pressure: Normal Pulse: Regular Respiratory Rate: Normal Appearance: Positive for: Well-Appearing, Non-Toxic, Comfortable Pain Distress: None Mental Status: Positive for: Alert and Oriented X 3 Finger Stick Blood Glucose: 76 - Systems Exam Head: Present: Atraumatic, Normocephalic Pupils: Present: PERRL Extroacular Muscles: Present: EOMI Conjunctiva: Present: Normal Mouth: Present: Moist Mucous Membranes Neck: Present: Normal Range of Motion Respiratory/Chest: Present: Clear to Auscultation, Good Air Exchange. No: Respiratory Distress, Accessory Muscle Use Cardiovascular: Present: Regular Rate and Rhythm, Normal S1, S2. No: Murmurs Abdomen: No: Tenderness, Distention, Peritoneal Signs Back: Present: Normal Inspection Upper Extremity: Present: Normal Inspection. No: Cyanosis, Edema Lower Extremity: Present: Normal Inspection. No: Edema Neurological: Present: GCS=15, CN II-XII Intact, Speech Normal Skin: Present: Warm, Dry, Normal Color. No: Rashes Psychiatric: Present: Alert, Oriented x 3, Normal Insight, Normal Concentration Medical Decision Making ED Course and Treatment: 03/26/18 14:02 Impression: 28 year old male presents to the Emergency department for multiple episodes of vomiting associated with nausea. Differential Diagnosis included but are not limited to: gastritis vs. nausea vs. vomiting Plan: -- Zofran -- Reassess and disposition Prior Visits: Notes and results from previous visits were reviewed. Progress Notes: 03/26/18 15:42 Patient was able to tolerate fluids in the ED without vomiting. Zofran was given which helped. He was comfortable and felt better. Continues to have no abdominal pain. He denies any lightheadedness or dizziness when he stands up. He will make sure to follow up with his primary care doctor and return to the ED if symptoms worsen or any other concern. - Medication Orders Current Medication Orders: Discontinued Medications Ondansetron HCl (Zofran Odt) 4 mg PO STAT STA Stop: 03/26/18 14:03 Last Admin: 03/26/18 14:09 Dose: 4 mg - Tammyibe Statement The provider has reviewed the documentation as recorded by the Marty Murcia. All medical record entries made by the Tammyibnolan were at my direction and personally dictated by me. I have reviewed the chart and agree that the record accurately reflects my personal performance of the history, physical exam, medical decision making, and the department course for this patient. I have also personally directed, reviewed, and agree with the discharge instructions and disposition. Disposition/Present on Arrival - Present on Arrival Any Indicators Present on Arrival: No History of DVT/PE: No History of Uncontrolled Diabetes: No Urinary Catheter: No History of Decub. Ulcer: No History Surgical Site Infection Following: None - Disposition Have Diagnosis and Disposition been Completed?: Yes Diagnosis: Vomiting Disposition: HOME/ ROUTINE Disposition Time: 15:42 Patient Plan: Discharge Condition: IMPROVED Discharge Instructions (ExitCare): Nausea and Vomiting, Adult (DC) Additional Instructions: KAVYA ALVAREZ, thank you for letting us take care of you today. Your provider was Randy Sanchez DO and you were treated for NAUSEA/VOMITING. The emergency medical care you received today was directed at your acute symptoms. If you were prescribed any medication, please fill it and take as directed. It may take several days for your symptoms to resolve. Return to the Emergency Department if your symptoms worsen, do not improve, or if you have any other problems. Please contact your doctor or call one of the physicians/clinics you have been referred to that are listed on the Patient Visit Information form that is included in your discharge packet. Bring any paperwork you were given at discharge with you along with any medications you are taking to your follow up visit. Our treatment cannot replace ongoing medical care by a primary care provider outside of the emergency department. Thank you for allowing the [facility] team to be part of your care today. If you had an X-Ray or CT scan: A Radiologist will review the ED reading if any change in treatment is needed we will contact you. If you had a blood, urine, or wound culture: It will take several days for the results, if any change in treatment is needed we will contact you. If you had an STI test: It will take 48 hours for the results. Please call after 1 week if you have not heard back. Prescriptions: Ondansetron ODT [Zofran ODT] 4 mg PO Q6 #14 odt Referrals: Mayra Marinelli MD [Primary Care Provider] - Follow up with primary Forms: [facility] ([place]), WORK NOTE
[2018-03-26 15:47] VITALS: BP 120/72; PULSE 75; O2SAT 100
== END 2018-03-26 15:48 | disposition home or self-care (01) ==
LOC: ED 13:03
DX: R11.2 Nausea with vomiting, unspecified (principal)